=== PATIENT | male | born 1965 | race Caucasian/White ===

== ENCOUNTER 2019-06-29 08:39 | Emergency (ER) | payer OTHER ==
[2019-06-29] MEDS ORDERED: Ondansetron INJ* 2 MG/ML VIAL IV ONE (09:15)
[2019-06-29] MEDS ORDERED: Morphine 4 MG/ML VIAL (1 ml) 4 MG/ML VIAL IV ONE (09:15)
[2019-06-29] MEDS ORDERED: NS 0.9% 1000 ML** 1,000 ML IV ONE (09:16)
--- NOTE | 2019-06-29 09:16 | ED ---
Abdominal Pain/Male - HPI Summary HPI Summary: This patient is a 54 year old M presenting to ED with a chief complaint of worsening umbilical hernia since 06/26/19. Patient was diagnosed by PCP with umbilical hernia a few days ago. Patient began to develop erythema to the abdomen this morning. Patient states he cannot reduce the hernia because it hurts too much. Normally, patient does not attempt to reduce the hernia because it does not bother him. He states his abdominal hardness was noticed in April. The patient rates the pain 2/10 in severity. Symptoms aggravated by nothing. Symptoms alleviated by nothing. Patient reports abdominal pain, subjective fever. Patient denies vomiting. Patient denies surgical history. - History of Current Complaint Chief Complaint: EDAbdPain Stated Complaint: PAIN AROUND BELLY BUTTON PER PT Time Seen by Provider: 06/29/19 08:55 Hx Obtained From: Patient Onset/Duration: Gradual Onset, Lasting Days - Since 06/26/19, Still Present, Worse Since Timing: Constant, Lasting Days - Since 06/26/19 Pain Intensity: 2 Pain Scale Used: 0-10 Numeric Location: Umbilical Character: Other: - Hard, red Aggravating Factor(s): Nothing Alleviating Factor(s): Nothing Associated Signs And Symptoms: Positive: Fever - Subjective. Negative: Vomiting - Allergies/Home Medications Allergies/Adverse Reactions: Allergies Allergy/AdvReac Type Severity Reaction Status Date / Time No Known Allergies Allergy Verified 06/29/19 08:49 PMH/Surg Hx/FS Hx/Imm Hx Endocrine/Hematology History: Denies: Hx Diabetes, Hx Thyroid Disease Cardiovascular History: Denies: Hx Hypertension Respiratory History: Denies: Hx Asthma, Hx Chronic Obstructive Pulmonary Disease (COPD) GI History: Denies: Hx Ulcer - Surgical History Surgery Procedure, Year, and Place: Denies Infectious Disease History: No Infectious Disease History: Denies: Hx Clostridium Difficile, Hx Hepatitis, Hx Human Immunodeficiency Virus (HIV), Hx of Known/Suspected MRSA, Hx Shingles, Hx Tuberculosis, Traveled Outside the [place] in Last 30 Days - Family History Known Family History: Positive: Other - Colon cancer in mother - Social History Alcohol Use: Occasionally - Beer a day Hx Substance Use: No Substance Use Type: Reports: None Hx Tobacco Use: No Smoking Status (MU): Never Smoked Tobacco Review of Systems Positive: Fever - Subjective Positive: Abdominal Pain. Negative: Vomiting Skin: Other - Erythema of abdomen over umbilical hernia All Other Systems Reviewed And Are Negative: Yes Physical Exam - Summary Physical Exam Summary: GENERAL: Patient is a well-developed and nourished M who is lying comfortable in the stretcher. Patient is not in any acute respiratory distress. HEAD AND FACE: Normocephalic EYES: PERRLA, EOMI x 2. EARS: Hearing grossly intact. MOUTH: Oropharynx within normal limits. NECK: Supple, trachea is midline, no adenopathy, no JVD, no carotid bruit. CHEST: Symmetric, no tenderness at palpation LUNGS: Clear to auscultation bilaterally. No wheezing or crackles. CVS: Regular rate and rhythm, S1 and S2 present, no murmurs or gallops appreciated. ABDOMEN: Umbilical hernia that is hard and warm to the touch. EXTREMITIES: Full ROM in all major joints, no edema, no cyanosis or clubbing. NEURO: Alert and oriented x 3. No acute neurological deficits. Speech is normal and follows commands. SKIN: Dry and warm Triage Information Reviewed: Yes Vital Signs On Initial Exam: Initial Vitals Temp Pulse Resp BP Pulse Ox 98.3 F 91 16 183/104 98 06/29/19 08:47 06/29/19 08:47 06/29/19 08:47 06/29/19 08:47 06/29/19 08:47 Vital Signs Reviewed: Yes Diagnostics - Vital Signs Vital Signs Temp Pulse Resp BP Pulse Ox 06/29/19 08:47 98.3 F 91 16 183/104 98 - Laboratory Result Diagrams: 06/29/19 09:19 06/29/19 09:19 Lab Statement: Any lab studies that have been ordered have been reviewed, and results considered in the medical decision making process. Abdominal Pain Male Course/Dx - Course Course Of Treatment: This patient is a 54 year old M presenting to ED with a chief complaint of worsening umbilical hernia since 06/26/19. Upon physical exam, the hernia is hard and warm to touch. In the ED course, patient received morphine, fluids, and Zofran. Blood work revealed WBC 11.1, glucose 104, CRP 10.53. Discussed patient case with Dr. Dukes, who evaluated the patient. OR will call the patient and schedule a surgery for later this week. Patient will be discharged home with dx of umbilical hernia. I discussed results with patient , and he reports feeling better. He is hemodynamically stable and safe for discharge. Strict return precautions given and he will otherwise follow up with Dr. Dukes for surgery. Patient understands and agrees with this plan. - Diagnoses Provider Diagnoses: Umbilical hernia - Provider Notifications Discussed Care Of Patient With: Lex Dukes Time Discussed With Above Provider: 09:18 Instructed by Provider To: Other - Discussed patient case with Dr. Dukes, surgeon, who will see the patient in the ED. At 1027, discussed patient case with Dr. Dukes who saw the patient. The OR will call the patient and schedule an appointment Discharge ED - Sign-Out/Discharge Documenting (check all that apply): Patient Departure - Discharge Patient Received Moderate/Deep Sedation with Procedure: No - Discharge Plan Condition: Stable Disposition: HOME Prescriptions: oxyCODONE TAB* [Roxycodone TAB 5 mg*] 5 mg PO Q6H PRN #16 tab MDD 4 PRN Reason: Pain - Moderate Patient Education Materials: Umbilical Hernia (ED) Referrals: Amadeo Hills NP [Primary Care Provider] - 3 Days Lex Dukes MD [Medical Doctor] - 4 Days Additional Instructions: Follow up with your primary care physician in 1-3 days. Schedule an appointment with the OR. RETURN TO THE EMERGENCY DEPARTMENT FOR CHANGING OR WORSENING SYMPTOMS. - Billing Disposition and Condition Condition: STABLE Disposition: Home - Attestation Statements Document Initiated by Laila: Yes Documenting Scribe: Will Quiroga Provider For Whom Laila is Documenting (Include Credential): Daly Vincent MD Scribe Attestation: Will Cheatham, scribed for Daly Vincent MD on 06/29/19 at 1805. Scribe Documentation Reviewed: Yes Provider Attestation: The documentation as recorded by the Will calhoun accurately reflects the service I personally performed and the decisions made by me, Daly Vincent MD Status of Scribe Document: Viewed
[2019-06-29 09:46] LABS: ABS Basophils 0.1 10^3/ul (0-0.2); ABS Eosinophils 0.1 10^3/ul (0-0.6); ABS Lymphocytes 2.4 10^3/ul (1.0-4.8); ABS Monocytes 0.7 10^3/ul (0-0.8); ABS Neutrophils 7.7 10^3/ul (1.5-7.7); Eosinophil % 1.3 %; Hematocrit 50 % (42-52); Hemoglobin 16.6 g/dL (14.0-18.0); Lymphocyte % 21.8 %; Mean Corpuscular HGB Conc 33 g/dL (31-36); Mean Corpuscular Hemoglobin 31 pg (27-31); Mean Corpuscular Volume 93 fL (80-94); Mean Platelet Volume 9.4 fL (7.4-10.4); Platelet Count 204 10^3/uL (150-450); Red Blood Count 5.39 10^6 /uL (4.18-5.48); Red Cell Distribution Width 13 % (10-15); White Blood Count 11.1 10^3/uL (3.5-10.8)
[2019-06-29 09:58] LABS: Albumin 4.4 g/dL (3.2-5.2); Albumin/Globulin Ratio 1.5 (1-3); BUN/Creatinine Ratio 16.9 (8-20); C Reactive Protein 10.53 mg/L (<8.01); Calcium 9.3 mg/dL (8.6-10.3); EGFR African American 108.2 (>60); EGFR Non-African American 89.4 (>60); Potassium 3.7 mmol/L (3.5-5.0); Total Bilirubin 0.4 mg/dL (0.2-1.0); Total Protein 7.4 g/dL (6.4-8.9)
[2019-06-29 10:53] VITALS: BP 141/109
[2019-06-29 11:02] LABS: Urine Appearance Clear; Urine Bilirubin Negative (Negative); Urine Blood Negative (Negative); Urine Color Straw; Urine Glucose Negative (Negative); Urine Ketones Negative (Negative); Urine Nitrite Negative (Negative); Urine Protein Negative (Negative); Urine Specific Gravity 1.008 (1.010-1.030); Urine Urobilinogen Negative (Negative)
--- NOTE | 2019-06-29 11:34 | CONS ---
CC: Amadeo Hills NP * CONSULTATION REPORT: DATE OF CONSULT: 06/29/19 - EMERGENCY DEPT REASON FOR CONSULTATION: Incarcerated umbilical hernia. HISTORY OF PRESENT ILLNESS: This is a 54-year-old gentleman previously in good health with a known umbilical hernia, who presented to [facility] Emergency Room on 06/29/19 with complaint of pain around the umbilical region. The patient reports that he had noted increasing pain over the 2 to 3 days prior to his presentation and provoking factors included bending over or pressing on the area. He had tried at some point to manipulate the hernia and manually reduce it, but was unsuccessful. As the symptoms persisted, he presented to the emergency room. Emergency room staff attempted to reduce the hernia without success. Surgical consultation was requested. The patient denies any fevers or chills. He denies nausea, vomiting. He has had normal bowel movements daily. He has had no anorexia. PAST MEDICAL HISTORY: None. PAST SURGICAL HISTORY: None. MEDICATIONS: None. ALLERGIES: None. FAMILY HISTORY: Mother had colon cancer. She is alive at 83. Father is and had lung cancer and peripheral vascular disease. He has no siblings. SOCIAL HISTORY: Never smoked. Reports on average drinking 1 beer a day. Denies other drug use. 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 He is . REVIEW OF SYSTEMS: Complete review of systems was performed and pertinent positives and negatives as above, otherwise 14-point review was negative. PHYSICAL EXAMINATION: A 5 feet 7 inches, 192 pounds. Vital Signs: Temperature 98.3, pulse 91, respirations 18, O2 sat 98% on room air, blood pressure 183/104. Head is normocephalic and atraumatic. His sclerae anicteric. Mucous membranes are moist. No otorrhea or rhinorrhea. His neck is symmetrical, supple, and no palpable lymphadenopathy or masses. Trachea is midline. Lungs are clear to auscultation bilaterally without wheezes, rales, or rhonchi. Heart is regular. S1, S2. No murmurs, rubs, or gallops appreciated. Abdomen is without scars. It is obese. There is some mild periumbilical erythema and a 3 cm nonreducible umbilical mass consistent with incarcerated umbilical hernia. No hepatomegaly appreciated. Extremities are warm without cyanosis, clubbing, or edema. No calf tenderness. IMPRESSION: A 54-year-old male with incarcerated umbilical hernia. The patient does not exhibit any GI symptoms and therefore suspect this is incarcerated fat. PLAN/RECOMMENDATIONS: I discussed the findings with the patient and his , who accompanied him. I discussed the management options. I explained that the nature of hernias, their potential complications and explained that ultimately surgical repair would be necessary. At present, the patient willing to be scheduled for outpatient surgical repair. This will be arranged for later this week. Surgical associates will contact him to make the arrangement. [id number]/[facility] #: [id number] TELMA
== END 2019-06-29 10:51 | disposition home or self-care (01) ==
LOC: ED 08:39
DX: K42.9 Umbilical hernia without obstruction or gangrene (principal)
CPT/HCPCS: 36415; 80053; 81003; 82150; 83605; 83690; 85025; 86140; 96361; 96374; 96375; 99282; J2270; J2405

== ENCOUNTER → 2019-07-03 11:36 | Day surgery (SDC) | payer OTHER ==
[~2019-07-03 11:36] MED LIST: Buffered Lidocaine 1% SYRIN* 1 ML/SYRINGE INTRADERM ONE; Bupivacaine 0.5% W/EPI SDV* 10 ML VIAL INJ ONE; Bupivacaine 0.5%* 50 ML MDV VIAL ONE; Ketorolac INJ* 30 MG/ML 1 ML VIAL IV PRN; Lactated Ringers 1000 ML Bag* 1,000 ML IV SCH; Lidocaine 1% INJ* 10 MG/ML 30 ML SDV ONE; Lidocaine 2% PF * 5 ML VIAL ONE; Midazolam* 1 MG/ML 2 ML VIAL (2 MG) ONE; Naloxone* 0.4 MG/ML 1 ML VIAL IV PRN; Ondansetron INJ* 2 MG/ML VIAL IV PRN; Propofol* 10 MG/ML 20 ML BTL ONE; ceFAZolin 2 GM in NS PREMIX(*) 2 GM/100 ML BAG IVPB ONE; fentaNYL* 50 MCG/ML 2 ML VIAL (100 MCG VIAL) IV PRN; fentaNYL* 50 MCG/ML 2 ML VIAL (100 MCG VIAL) ONE
[2019-07-03 14:27] VITALS: BP 114/90
--- NOTE | 2019-07-08 00:25 | OP ---
CC: Amadeo Hills NP * DATE OF OPERATION: 07/03/19 - SDS DATE OF : 67 SURGEON: Lex Dukes MD WATER GAS OPERATOR: Divya Gore NP ANESTHESIOLOGIST: Dr. Brown. ANESTHESIA: Local MAC. PRE-OP DIAGNOSIS: Umbilical hernia. POST-OP DIAGNOSIS: Umbilical hernia. OPERATIVE PROCEDURE: Open repair of umbilical hernia. ESTIMATED BLOOD LOSS: Less than 20 mL. IV FLUIDS: Crystalloids. SPECIMEN: None. DRAINS: None. COMPLICATION: None. COUNTS: Instrument, needle, and sponge counts were correct. DESCRIPTION OF PROCEDURE: The patient was brought to the operating room and placed on the table supine. The patient was administered intravenous sedation and intravenous antibiotics. He was prepped and draped in the usual sterile fashion. A time-out was performed. Local anesthetic was infiltrated into the skin and soft tissue. A curvilinear infraumbilical incision was created. Subcutaneous tissues were divided with cautery, sharp and blunt dissection. Umbilical hernia stalk was dissected off the anterior abdominal wall. Incarcerated fat and the thickened peritoneal sac were encountered. The sac was excised. Omental fat that was necrotic was divided after clamping and ligated with 2-0 Vicryl. This was then reduced beyond the defect. The defect was cleaned circumferentially. The defect was smaller than 2 cm and felt to be amenable to primary closure. Primary closure was performed with 0 Ethibond suture and interrupted U stitch. The umbilical stalk was reapproximated to anterior abdominal wall. Skin was closed in 2 layers with 3-0 Vicryl for the subcu and 4-0 Monocryl for the skin in running subcuticular fashion. Steri-Strips and dressing were applied. The patient tolerated the procedure well and was transferred to [facility] stable. [id number]/[facility] #: [id number] [facility]
== END | disposition home or self-care (01) ==
LOC: OR 11:36
PROVIDERS: ATTEND Surgery
DX: K42.0 Umbilical hernia with obstruction, without gangrene (principal); Z68.30 Body mass index [BMI] 30.0-30.9, adult
CPT/HCPCS: J0690; J2250; J2704; J3010; J3490

== ENCOUNTER 2019-07-21 18:51 | Emergency (ER) | payer OTHER ==
--- NOTE | 2019-07-21 19:02 | UC ---
Skin Complaint HPI - HPI Summary HPI Summary: 54 yo male presents with tick bite to left calf. He tells me that about a week ago he felt an itch to his left calf and scratched the area and a tick came off. Had no pain or symptoms at the time. Today he noticed a red ring with a central clearing to the area - he is concerned about lyme disease. Unsure how long the tick was attached to him. Denies any headache, fevers, chills, n/v. - History of Current Complaint Time Seen by Provider: 07/21/19 19:02 Stated Complaint: TICK BITE Hx Obtained From: Patient Onset/Duration: Sudden Onset Current Severity: Mild Pain Intensity: 2 Pain Scale Used: 0-10 Numeric - Allergy/Home Medications Allergies/Adverse Reactions: Allergies Allergy/AdvReac Type Severity Reaction Status Date / Time No Known Allergies Allergy Verified 07/21/19 19:10 PMH/Surg Hx/FS Hx/Imm Hx - Additional Past Medical History Additional PMH: None - Surgical History Surgical History: Yes Surgery Procedure, Year, and Place: [id number] polyps removed - Family History Known Family History: Positive: Other - Colon cancer in mother - Social History Lives: With Family Alcohol Use: Daily Alcohol Amount: 1 beer/daily Substance Use Type: None Smoking Status (MU): Never Smoked Tobacco Have You Smoked in the Last Year: No Review of Systems All Other Systems Reviewed And Are Negative: No Constitutional: Positive: Negative Skin: Positive: Other - Tick bite left calf Respiratory: Positive: Negative Cardiovascular: Positive: Negative Neurovascular: Positive: Negative Neurological: Positive: Negative Psychological: Positive: Negative Physical Exam - Summary Physical Exam Summary: GENERAL: NAD. WDWN. No pain distress. SKIN: LEFT CALF: central 1.0cm area of erythema with surrounding clearing and then a ring of mild erythema approx 3.5cm in diameter. No open wound, streaking , or induration. NECK: Supple. Nontender. No lymphadenopathy. CHEST: No accessory muscle use. Breathing comfortably and in no distress. CV: Pulses intact. Cap refill <2seconds NEURO: Alert. PSYCH: Age appropriate behavior. Triage Information Reviewed: Yes Vital Signs: Vital Signs: Temp Pulse Resp BP Pulse Ox 99.4 F 117 18 177/123 99 07/21/19 19:03 07/21/19 19:03 07/21/19 19:03 07/21/19 19:09 07/21/19 19:03 Vital Signs Reviewed: Yes Course/Dx - Course Course Of Treatment: Left calf bull's eye rash with hx of recent tick bite. Will treat for lyme disease with 2 weeks of doxycycline. Advised to monitor for signs/symptoms of lyme and f/u with PCP if he develops these. Regarding his elevated BP - pt states he has had high BP in the past and his PCP has wanted to start medication, but pt has refused. He says he takes his blood pressure at home when he is relaxed and it is "normal". He shows me an edgar with all the readings and they average 140s/90s at home. He is not having any headache, dizziness, numbness, weakness, SOB, chest pain, n /v. I recommended that he go to the ED for management of his BP at this time, but he did not want to do this. Therefore, I made him aware of the risks and signs/ symptoms that are red flags and to go to the ED if he changes his mind or if he develops symptoms. He voiced understanding and agrees with the plan. - Diagnoses Provider Diagnosis: Tick bite, Erythema migrans (Lyme disease), Elevated blood pressure reading Discharge ED - Sign-Out/Discharge Documenting (check all that apply): Patient Departure All imaging exams completed and their final reports reviewed: No Studies - Discharge Plan Condition: Stable Disposition: HOME-RECOMMEND TO ED Prescriptions: DOXYcycline CAP(*) [DOXYcycline 100MG CAP(*)] 100 mg PO BID #28 cap Patient Education Materials: Lyme Disease (ED), Tick Bite (ED) Referrals: Amadeo Hills NP [Primary Care Provider] - Additional Instructions: If you develop a fever, shortness of breath, chest pain, new or worsening symptoms - please call your PCP or go to the ED immediately. We discussed your high blood pressure today and it was recommended that you go to the ER for further treatment to lower your blood pressure - you did not want to do this today. Please follow up with your PCP within 2 weeks for a recheck If you develop a headache, dizziness, shortness of breath, chest pain, numbness , tingling, weakness, nausea, or vomiting - please go to the ER as your blood pressure is very high. - Billing Disposition and Condition Condition: STABLE Disposition: Home-Recommend to ED
[2019-07-21 19:23] VITALS: BP 190/120
== END 2019-07-21 19:35 | disposition home health service (06) ==
LOC: UCEAST 18:51
DX: S80.862A Insect bite (nonvenomous), left lower leg, initial encounter (principal); W57.XXXA Bitten or stung by nonvenomous insect and other nonvenomous arthropods, initial encounter; Y92.9 Unspecified place or not applicable; A26.0 Cutaneous erysipeloid; R03.0 Elevated blood-pressure reading, without diagnosis of hypertension
CPT/HCPCS: 99212; G0463